=== PATIENT | male | born 1990 | race Caucasian/White ===

== ENCOUNTER 2016-12-31 02:51 | Emergency (ER) | payer MEDICAID ==
[~2016-12-31] VITALS: Ht 170.2 cm; Wt 83.9 kg
[2016-12-31 03:10] VITALS: BP 144/93
== END 2016-12-31 04:41 | disposition home or self-care (01) ==
LOC: ER 03:01
DX: F41.9 Anxiety disorder, unspecified (principal); F32.9 Major depressive disorder, single episode, unspecified; Z88.2 Allergy status to sulfonamides